=== PATIENT | male | born 1980 | race Caucasian/White ===

== ENCOUNTER 2019-05-10 10:56 | Emergency (ER) | payer MEDICAID, MEDICARE ==
[2019-05-10] MEDS ORDERED: Lactated Ringers 1,000 ML IV ONE (12:07)
[2019-05-10 12:38] LABS: CHLORIDE,CL 103 mmol/L (101-111); SODIUM,NA 136 mmol/L (135-145)
[2019-05-10] MEDS ORDERED: Iopamidol 612 MG/ML 100 ML Bottle IVPUSH ONE (13:02)
--- NOTE | 2019-05-10 14:10 | EDM.PDOC ---
Scribed by Martha Beyer 05/10/19 1410 for Jose A Mukherjee PA ED HPI GENERAL MEDICAL PROBLEM - General Chief Complaint: Abdominal Pain Stated Complaint: PANCREATITIS ISSUE Time Seen by Provider: 05/10/19 12:03 Source of Information: Reports: Patient, RN, RN Notes Reviewed History Limitations: Reports: No Limitations - History of Present Illness INITIAL COMMENTS - FREE TEXT/NARRATIVE: Patient is a 38-year-old male with diffuse abdominal pain/burning. HE vomited yesterday. He attempted to get into clinic, but was sent to the ED. Patient reporting 6 months being sober. Patient reports vomited x1 today. Abdominal pain x3 weeks. He has been taking Tums with no relief. History of pancreatitis. Patient reports stomach seems firm today. Onset: Gradual Duration: Getting Worse Location: Reports: Abdomen Quality: Reports: Ache Severity: Moderate Improves with: Reports: None Worsens with: Reports: None Associated Symptoms: Reports: No Other Symptoms Abdominal Pain Score (Numeric/FACES): 7 - Related Data Allergies Allergy/AdvReac Type Severity Reaction Status Date / Time No Known Allergies Allergy Verified 05/10/19 11:26 Home Meds: Home Meds . [No Known Home Meds] 05/10/19 [History] Past Medical History HEENT History: Reports: None Cardiovascular History: Reports: None Respiratory History: Reports: None Gastrointestinal History: Reports: Pancreatitis Genitourinary History: Reports: None Musculoskeletal History: Reports: None Neurological History: Reports: None Psychiatric History: Reports: None Endocrine/Metabolic History: Reports: None Hematologic History: Reports: None Oncologic (Cancer) History: Reports: None Dermatologic History: Reports: None - Infectious Disease History Infectious Disease History: Reports: None - Past Surgical History Head Surgeries/Procedures: Reports: None Social & Family History - Family History Family Medical History: Noncontributory - Tobacco Use Smoking Status *Q: Current Every Day Smoker Years of Tobacco use: 13 Packs/Tins Daily: 0.5 - Caffeine Use Caffeine Use: Reports: Coffee, Soda - Recreational Drug Use Recreational Drug Use: No ED ROS GENERAL - Review of Systems Review Of Systems: Comprehensive ROS is negative, except as noted in HPI. ED EXAM, GI/ABD - Physical Exam Exam: See Below Exam Limited By: No Limitations General Appearance: Alert, WD/WN, No Apparent Distress Eyes: Bilateral: Normal Appearance Ears: Normal External Exam, Normal Canal, Hearing Grossly Normal, Normal TMs Nose: Normal Inspection, Normal Mucosa, No Blood Throat/Mouth: Normal Inspection, Normal Lips, Normal Teeth, Normal Gums, Normal Oropharynx, Normal Voice, No Airway Compromise Head: Atraumatic, Normocephalic Neck: Normal Inspection, Supple, Non-Tender, Full Range of Motion Respiratory/Chest: No Respiratory Distress, Lungs Clear, Normal Breath Sounds, No Accessory Muscle Use, Chest Non-Tender Cardiovascular: Normal Peripheral Pulses, Regular Rate, Rhythm, No Edema, No Gallop, No JVD, No Murmur, No Rub GI/Abdominal Exam: Other (diffuse upper abdominal pain) (Male) Exam: Deferred Rectal (Males) Exam: Deferred Back Exam: Normal Inspection, Full Range of Motion, NT Extremities: Normal Inspection, Normal Range of Motion, Non-Tender, Normal Capillary Refill, No Pedal Edema Neurological: Alert, Oriented, CN II-XII Intact, Normal Cognition, Normal Gait, Normal Reflexes, No Motor/Sensory Deficits Psychiatric: Normal Affect, Normal Mood Skin Exam: Warm, Dry, Intact, Normal Color, No Rash Lymphatic: No Adenopathy Course - Vital Signs Last Recorded V/S: Last Vital Signs Temp 36.1 C 05/10/19 11:20 Pulse 116 H 05/10/19 11:20 Resp 16 05/10/19 11:20 BP 98/72 05/10/19 11:20 Pulse Ox 99 05/10/19 11:20 - Orders/Labs/Meds Labs: Laboratory Tests 05/10/19 05/10/19 05/10/19 Range/Units 12:09 12:09 12:09 WBC 5.1 (5.0-10.0) 10^3/uL RBC 5.21 (4.6-6.2) 10^6/uL Hgb 15.4 (14.0-18.0) g/dL Hct 42.8 (40.0-54.0) % MCV 82.1 (80-100) fL MCH 29.6 (27.0-34.0) pg MCHC 36.0 H (33.0-35.0) g/dL Plt Count 244 (150-450) 10^3/uL Neut % (Auto) 40.6 L (42.2-75.2) % Lymph % (Auto) 40.9 (20.5-50.1) % [place] % (Auto) 11.0 H (2-8) % Eos % (Auto) 6.9 H (1.0-3.0) % Baso % (Auto) 0.6 (0.0-1.0) % Sodium 136 (135-145) mmol/L Potassium 4.0 (3.6-5.0) mmol/L Chloride 103 (101-111) mmol/L Carbon Dioxide 25.0 (21.0-31.0) mmol/L Anion Gap 12.0 BUN 9 (7-18) mg/dL Creatinine 1.0 (0.6-1.3) mg/dL Est Cr Clr Drug Dosing 13.10 mL/min Estimated GFR (MDRD) > 60 BUN/Creatinine Ratio 9.00 Glucose 159 H (74-105) mg/dL Calcium 8.8 (8.4-10.2) mg/dl Total Bilirubin 0.9 (0.2-1.0) mg/dL AST 193 H (10-42) IU/L ALT 494 H (10-60) IU/L Alkaline Phosphatase 106 (42-121) IU/L Total Protein 7.0 (6.7-8.2) g/dl Albumin 3.9 (3.2-5.5) g/dl Globulin 3.1 Albumin/Globulin Ratio 1.26 Amylase 22 L (28-100) U/L Lipase 22 (22-51) U/L Meds: Medications Discontinued Medications Generic Name Dose Route Start Last Admin Trade Name Freq PRN Reason Stop Dose Admin Lactated Ringer's 1,000 mls @ 999 mls/hr 05/10/19 12:07 05/10/19 12:15 Ringers, Lactated IV 05/10/19 13:07 999 mls/hr .BOLUS ONE Administration Iopamidol 100 ml 05/10/19 13:02 05/10/19 13:23 Isovue-300 (61%) IVPUSH 05/10/19 13:03 100 ml ONETIME ONE Administration Departure - Departure Time of Disposition: 14:07 Disposition: Home, Self-Care 01 Condition: Fair Clinical Impression: Gastroenteritis, Lymphadenopathy, abdominal - Discharge Information *PRESCRIPTION DRUG MONITORING PROGRAM REVIEWED*: Not Applicable *COPY OF PRESCRIPTION DRUG MONITORING REPORT IN PATIENT TOMI: Not Applicable Instructions: Viral Gastroenteritis, Adult, [id number] Forms: ED Department Discharge Care Plan Goals: The patient was advised of the examination, lab and CT results during the visit. The patient was encouraged to stick to a BRAT diet (Bananas, Rice, Applesauce and Coffey) with small frequent sips of fluid over the next 48 hours. If the patient continues to have symptoms or has additional symptoms, the patient should follow-up with his primary care facility or return to the emergency department. Sepsis Event Note - Evaluation Sepsis Screening Result: No Definite Risk - Focused Exam Vital Signs: Vital Signs Temp Pulse Resp BP Pulse Ox 05/10/19 11:20 36.1 C 116 H 16 98/72 99 Date Exam was Performed: 05/10/19 Time Exam was Performed: 14:07 I have read and agree with the documentation that has been completed regarding this visit. By signing this record, I attest that the documentation was completed in my physical presence and is an accurate record of the encounter.
== END 2019-05-10 14:15 | disposition home or self-care (01) ==
LOC: DL.ED 10:56
DX: K52.9 Noninfective gastroenteritis and colitis, unspecified (principal); R59.0 Localized enlarged lymph nodes; F17.210 Nicotine dependence, cigarettes, uncomplicated
CPT/HCPCS: 36415; 74177; 80053; 82150; 83690; 85025; 96360; 99284; J7120; Q9967

== ENCOUNTER 2019-12-03 13:11 | Emergency (ER) | payer MEDICARE ==
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
[2019-12-03 14:14] LABS: ANION GAP 15.7 mEq/L (7-13); CHLORIDE,CL 101 mmol/L (98-107); SODIUM,NA 139 mmol/L (136-145)
[2019-12-03 14:27] LABS: ACETAMINOPHEN 0 ug/mL (10-30 (Therapeutic))
== END 2019-12-03 15:57 ==
LOC: DL.ED 13:11
DX: F20.0 Paranoid schizophrenia (principal); F10.10 Alcohol abuse, uncomplicated; R41.82 Altered mental status, unspecified; F17.210 Nicotine dependence, cigarettes, uncomplicated; Y90.5 Blood alcohol level of 100-119 mg/100 ml; Z20.828 Contact with and (suspected) exposure to other viral communicable diseases; Z88.0 Allergy status to penicillin; Z88.8 Allergy status to other drugs, medicaments and biological substances; Z79.899 Other long term (current) drug therapy
CPT/HCPCS: 36415; 80053; 80305-QW; 80307; 81003; 85025; 99283; 99285; U0002